=== PATIENT | male | born 1990 | race Caucasian/White ===

== ENCOUNTER 2024-08-30 22:02 | Inpatient (IN) | payer MEDICAID, SELFPAY ==
[2024-08-30 22:41] VITALS: BP 153/96; PULSE 79; RESP 16; TEMP 37.2; O2SAT 98; BMI 22.5
--- NOTE | 2024-08-31 06:31 | PC.ADMIT ---
Pt is a 34 yo male BIBA from [facility]. Pt arrived on unit at 2225 on 08/30/2024. Pt is a 12B. Pt denies medical issues. Pt denies etoh and tobacco use but reports THC use often . Utox was + for THC. Pt was sectioned by his aunts as they felt he was acting bizarrely. Mother's # is no longer in service. Pt has family hx of mental illness. Aunts of pt report that they have not seen him for over 7 years and pt randomly texted her to find out how she was, pt was made aware aunt had hip surgery. Aunt stated she was well and hoped to see him soon. Pt then showed up at his door. Pt's aunt reported that she felt the pt was on drugs as he was not talking in reality . Pt told aunt he is renting a room and his neighbor is in a motorcycle gang and out to get him . Pt reported the neighbor was taking over his body and pt is fearful that his food and water are being poisoned . Pt reports that he recently changed jobs, broke up with his girlfriend and is now renting his room alone. Pt presents as drowsy, disheveled but polite and appears linear. Pt did not complete admission process, went to bed and did not wake when name called, restly soundly. call center rn provider CAW notified of admission and orders obtained. Pt on 15 minute safety checks, feels safe on unit.
[2024-08-31 07:40] VITALS: BP 147/86; PULSE 71; RESP 16; TEMP 36.8; O2SAT 98
--- NOTE | 2024-08-31 08:38 | HO.PSYADMNOT ---
HPI Chief Complaint: Unspecified psychosis Diagnostics Vital Signs (24Hr): Vital Signs - 24 hr 08/30/24 22:41 08/31/24 07:40 Temperature 98.9 F 98.3 F Pulse Rate 79 71 Respiratory Rate 16 16 Blood Pressure 153/96 H 147/86 H Pulse Oximetry 98 98 Oxygen Delivery Method Room Air Room Air BMI result Body Mass Index 22.5 Meds/Allergies Meds Home Medications ?Medication ?Instructions ?Recorded ?Confirmed ?Type No Known Home Meds 08/31/24 08/31/24 History Allergies Allergies Allergy/AdvReac Type Severity Reaction Status Date / Time Unable to Assess Allergy Verified 08/30/24 21:36 Assessment & Plan Statement Statement: I have reviewed the history and physical and performed a pertinent examination on my patient. No changes have occurred unless specified. If the History and Physical was not performed prior to admission, the Hospitalist's service will be consulted for completing the admission physical. Time Spent With Patient Time: Total time managing care of this patient today ____ minutes.
[2024-08-31 08:43] LABS: Estimated Average Glucose 100 mg/dL; Hemoglobin A1C 126.8907 umol/L; Hemoglobin A1c % 5.1 % (<6.0); Total Hemoglobin (HGBA1C) 3918.5104 umol/L
[2024-08-31 08:52] LABS: Cholesterol 226 mg/dL (<200); HDL Cholesterol 89 mg/dL (>40); LDL Cholesterol Calculated 130 mg/dL (<100); Magnesium 2.2 mg/dL (1.6-2.6); Triglycerides 39 mg/dL (<150)
[2024-08-31 09:10] LABS: Free T4 (Free Thyroxine) 1.17 ng/dL (0.71-1.85); Thyroid Stimulating Hormone 1.44 uIU/mL (0.32-4.0)
[2024-08-31 09:19] LABS: Folate 13.7 ng/mL (> or = 4.0); Vitamin B12 363 pg/mL (200-900)
--- NOTE | 2024-08-31 10:32 | P.CONHOSP_ITS ---
History of Present Illness Data of Consult Service Date: 08/31/24 Primary Care Provider: None Physician HPI Reason for consult: Medical H&P Patient is a 34-year-old male who was brought to the [facility] ED by his family for acting bizarrely. He reports he has a remote history of childhood asthma, and his workup was benign aside from slightly elevated random glucose. Patient reports that he has a history of alcohol abuse see last drank 5 days ago. Denies any history of alcohol withdrawal or seizures. Reports that he drinks beer daily. Last drink prior to admission. Patient also reports smoking marijuana daily. He denies any past surgical history, he denies any past medical history, he has no medical complaints on exam. He appears alert in no apparent distress. Review of Systems Review of Systems: Denies any shortness of breath, chest pain, dizziness, lightheadedness, abdominal pain or discomfort, nausea vomiting or diarrhea PMFSH Social History Household Members: None Housing: Other Housing Other:: rents room Do you presently have visiting nurse or other home services: No Patient Tobacco Use Status: Refuse Tobacco use screen Currently Displaying Signs/Symptoms of Drug Intoxication Withdrawal: No Do you feel safe in your current relationship?: No Current Relationship Advance Directives: No Advance Directives Information Provided: No Do you have thoughts of harming others: None Do you have a plan to hurt others: No Plan Recently lost weight without trying: No How much weight loss: Not applicable Eating poorly because of decreased appetite: No Nutrition screen score: 0 Nutrition Risks: No Nutritional Risk Meds Allergies Allergy/AdvReac Type Severity Reaction Status Date / Time Unable to Assess Allergy Verified 08/30/24 21:36 Active Medications: Current Medications Acetaminophen (Acetaminophen 325 Mg Tablet) 650 mg PO Q6H PRN PRN Reason: Headache/Pain, Scale 1-10 Al Hydroxide/Mg Hydroxide (Magnesium Hydrox/Alum Hydrox 30 Ml Oral.Susp) 30 ml PO Q6H PRN PRN Reason: Heartburn/Nausea Hydroxyzine HCl (Hydroxyzine Hcl 25 Mg Tablet) 25 mg PO Q6H PRN PRN Reason: mild anxiety Magnesium Hydroxide (Milk Of Magnesia 30 Ml Oral.Susp) 30 ml PO DAILY PRN PRN Reason: Constipation Nicotine Polacrilex (Nicotine Polacrilex 2 Mg Gum) 4 mg BUCCAL Q2H PRN PRN Reason: Nicotine Cravings Trazodone HCl (Trazodone Hcl 50 Mg Tablet) 50 mg PO BEDTIME MRX1 PRN PRN Reason: Insomnia Home Medications ?Medication ?Instructions ?Recorded ?Confirmed ?Last Taken ?Type No Known Home Meds 08/31/24 08/31/24 Unknown History Physical Exam Vital Signs and Narrative: Vital Signs: Last Vital Signs Temp 98.3 F 08/31/24 07:40 Pulse 71 08/31/24 07:40 Resp 16 08/31/24 07:40 BP 147/86 H 08/31/24 07:40 Pulse Ox 98 08/31/24 07:40 O2 Del Method Room Air 08/31/24 07:40 BMI result Body Mass Index 22.5 Alert and oriented X3, able to give good history. Neuro: CN II-X11 intact, no deficits, visual acuity intact EYES: PERRLA, EOM intact ENT: hearing intact, uvula midline, lips moist Cardiac: S1 S2 RRR, no edema in Lower ext, no calf tenderness Pulmonary: lungs clear to auscultation, No increased WOB. Abdominal: BS active in all 4 quadrants, no guarding or tenderness MSK: Strength 5/5 upper and lower extremities, ambulates with a steady gait : Deferred Extremities: no edema in lower extremities Psych: mood stable, speech rapid. Skin: Warm and dry, Intact Results Labs Labs: Laboratory Results - last 24 hr 08/31/24 07:58 Estimat Average Glucose 100 Hemoglobin A1c % 5.1 Magnesium 2.2 Triglycerides 39 Cholesterol 226 H LDL Cholesterol, Calc 130 H HDL Cholesterol 89 Vitamin B12 363 Folate 13.7 TSH 1.44 Free T4 1.17 Assessment and Plan (1) Bizarre behavior: Status: Acute Plan 34-year-old healthy male brought to the ED by his family for acting bizarrely, his medical workup was relatively benign. He received olanzapine in the emergency department at outside hospital. He is admitted here for further psychiatric care. Plan per psychiatric team. Reviewed a.m. labs, despite elevated random glucose on admit his A1c is 5.1. Cholesterol slightly elevated. We will need to follow up with his primary care upon discharge. Encouraged diet modification and exercise Thank you for allowing me to participate in the care of this patient. Signing off at this time. Please reconsult of any acute complaints or issues arise
--- NOTE | 2024-08-31 13:48 | P.HPPS_ITS ---
HPI Date of Service: 08/31/24 Chief Complaint: Unspecified psychosis Sources of Information: patient interviewed, chart reviewed and crisis/core team assessment reviewed HPI Subjective Notes: Stock Warning and Section 12B Narrative: Patient is a 34-year-old male with history of bipolar disorder who was brought in to ER by family due to concerns of bizarre behavior . Per crisis report, patient reports that he has not slept in several days. He reports recent stressors have been breaking up with his girlfriend, which required him to move out of the apartment and find a room to rent, and changing jobs . Per family, they were concerned the patient was on something and reporting that patient was acting bizarre . Patient told his aunt that he was fearful that his food and water being poisoned and that his neighbor was taking over his body . Patient family reports they have not seen or heard from him in multiple years d/t pt's mother keeping him away from them. History of 1 prior inpatient psychiatric hospitalization (2007). History of being prescribed psychiatric medications however is not currently prescribed any medications. He does not have outpatient psychiatric providers. Patient stated he does not trust doctors and does not want to get drugs pumped into his body . Patient reports he was previously prescribed Seroquel and lorazepam. During admission assessment, patient presents alert and oriented x3. Calm and cooperative. Patient reports feeling tired due to not sleeping for few days. Patient reports being diagnosed with bipolar disorder and previously being prescribed Seroquel, Abilify and lorazepam. Patient stated, I hated it. I was drugged out . Patient reports he is currently not interested in taking psychiatric medications. Patient stated, I do not want medications and [employer]. I think the marijuana I was smoking made me worse and made me panic. I'm going to lay off of that . 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 Patient reports he is agreeable to take medication for sleep; risks/benefits reviewed. Past Psychiatric History: hx of one prior inpatient psychiatric hospitalization does not have outpatient psychiatric providers denies hx of SA/SIB. medication hx of Seroquel and Ativan. Medical Evaluation Reviewed: Yes PMFSH Family History: unknown Social History: rents a room. single. no kids. employed waste disposal plant operator. some college Substance History: smoke marijuana daily. denies any other substance use. Trauma History: denies Diagnostics Vital Signs (24Hr): Vital Signs - 24 hr 08/30/24 22:41 08/31/24 07:40 Temperature 98.9 F 98.3 F Pulse Rate 79 71 Respiratory Rate 16 16 Blood Pressure 153/96 H 147/86 H Pulse Oximetry 98 98 Oxygen Delivery Method Room Air Room Air BMI result Body Mass Index 22.5 Labs Labs: Laboratory Results - last 48 hr 08/31/24 07:58 Estimat Average Glucose 100 Hemoglobin A1c % 5.1 Magnesium 2.2 Triglycerides 39 Cholesterol 226 H LDL Cholesterol, Calc 130 H HDL Cholesterol 89 Vitamin B12 363 Folate 13.7 TSH 1.44 Free T4 1.17 Meds/Allergies Meds Home Medications ?Medication ?Instructions ?Recorded ?Confirmed ?Type No Known Home Meds 08/31/24 08/31/24 History Allergies Allergies Allergy/AdvReac Type Severity Reaction Status Date / Time Unable to Assess Allergy Verified 08/30/24 21:36 Mental Status Exam Mental Status Exam Patient Appearance: Appropriate Patient Orientation: Person, Place, Time and Situation Level of Consciousness: Awake and Alert Patient Behavior: Appropriate, Cooperative and Good Eye Contact Mood Description: Calm Affect Description: Calm Ability to Follow Directions: Good Speech Pattern: Clear and Appropriate Memory Description: Intact Hallucinations: None Delusions: Not Present Thought Process: Intact Thought Content: positive for Intact Assessment & Plan Assessment & Plan (1) Bipolar 1 disorder: Status: Acute Code(s): F31.9 - Bipolar disorder, unspecified Plan Patient is a 34-year-old male with history of bipolar disorder who was brought in to ER by family due to concerns of bizarre behavior . Plan: 12B 15 minute safety checks obtain collateral Start: Melatonin 6mg PO bedtime Zyprexa 5mg PO bedtime encourage groups referral to outpatient psychiatric providers discharge planning Patient educated on: diagnosis and medication risk/benefits Reason for continued inpatient stay Substantial Risk for: med/psych decompensation Statement Statement: I have reviewed the history and physical and performed a pertinent examination on my patient. No changes have occurred unless specified. If the History and Physical was not performed prior to admission, the Hospitalist's service will be consulted for completing the admission physical. Time Spent With Patient Time: Total time managing care of this patient today _60___ minutes.
[2024-08-31 20:00] VITALS: BP 150/96; PULSE 72; RESP 16; TEMP 37.4; O2SAT 99
[2024-08-31] MEDS: Melatonin 3 MG TABLET 6 MG PO (23:05)
--- NOTE | 2024-09-01 07:25 | HO.PSYCHPN ---
Subjective Subjective Date of Service: 09/01/24 Reason For Visit: Unspecified psychosis Subjective Notes: Section 12B Interim History: patient interviewed. Discussed with staff. Chart reviewed. Is flat. Denies having any mental health issues and refusing medications. Eating and drinking okay. Slept 5 hours. In the milieu watching golf. 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 Reports he has been working 3 jobs and can not catch a break. Very eager for discharge. Feels that food and such things in the hospital may be poisoned and he has been feeling drowsy at times. Does make statements that may or may not be true such as knowing the Yonny brothers who are professional golfers, and playing in the current [employer]. Reports knowing them because his aunt went to school with their mom -of note The Yonny family are based in the . Medication Compliance: No Side effects from medications: No Attending Groups: No Review of Systems Acute medical concerns: No Review of Systems Review of Systems unremarkable Mental Status Exam Mental Status Exam Patient Appearance: Appropriate Patient Orientation: Person, Place, Time and Situation Level of Consciousness: Awake and Alert Patient Behavior: Appropriate, Cooperative and Good Eye Contact Mood Description: Calm Affect Description: Calm Ability to Follow Directions: Good Speech Pattern: Clear and Appropriate Memory Description: Intact Hallucinations: None Delusions: Not Present (Does make statements that may or may not be true such as knowing the Yonny brothers who are professional golfers, and playing in the current [employer]. Reports knowing them because his aunt went to school with their mom -of note The Yonny family are based in the .) Thought Process: Intact Thought Content: positive for Intact Diagnostics Vital Signs (24Hr): Vital Signs - 24 hr 08/31/24 07:40 08/31/24 20:00 Temperature 98.3 F 99.3 F Pulse Rate 71 72 Respiratory Rate 16 16 Blood Pressure 147/86 H 150/96 H Pulse Oximetry 98 99 Oxygen Delivery Method Room Air Room Air BMI result Body Mass Index 22.5 Labs Labs: Laboratory Results - last 48 hr 08/31/24 07:58 Estimat Average Glucose 100 Hemoglobin A1c % 5.1 Magnesium 2.2 Triglycerides 39 Cholesterol 226 H LDL Cholesterol, Calc 130 H HDL Cholesterol 89 Vitamin B12 363 Folate 13.7 TSH 1.44 Free T4 1.17 Medications Medications Current Medications Acetaminophen (Acetaminophen 325 Mg Tablet) 650 mg PO Q6H PRN PRN Reason: Headache/Pain, Scale 1-10 Al Hydroxide/Mg Hydroxide (Magnesium Hydrox/Alum Hydrox 30 Ml Oral.Susp) 30 ml PO Q6H PRN PRN Reason: Heartburn/Nausea Hydroxyzine HCl (Hydroxyzine Hcl 25 Mg Tablet) 25 mg PO Q6H PRN PRN Reason: mild anxiety Lorazepam (Lorazepam 0.5 Mg Tablet) 0.5 mg PO BID PRN PRN Reason: severe anxiety Magnesium Hydroxide (Milk Of Magnesia 30 Ml Oral.Susp) 30 ml PO DAILY PRN PRN Reason: Constipation Melatonin (Melatonin 3 Mg Tablet) 6 mg PO BEDTIME [facility] Last Admin: 08/31/24 23:05 Dose: 6 mg Nicotine Polacrilex (Nicotine Polacrilex 2 Mg Gum) 4 mg BUCCAL Q2H PRN PRN Reason: Nicotine Cravings Olanzapine (Olanzapine 5 Mg Tablet) 5 mg PO Q4H PRN PRN Reason: agitation Olanzapine (Olanzapine 5 Mg Tablet) 5 mg PO BEDTIME [facility] Last Admin: 08/31/24 21:36 Dose: Not Given Trazodone HCl (Trazodone Hcl 50 Mg Tablet) 50 mg PO BEDTIME MRX1 PRN PRN Reason: Insomnia Allergies Allergies Allergy/AdvReac Type Severity Reaction Status Date / Time Unable to Assess Allergy Verified 08/30/24 21:36 Assessment & Plan Assessment & Plan (1) Bipolar 1 disorder: Status: Acute Code(s): F31.9 - Bipolar disorder, unspecified Plan Patient is a 34-year-old male with history of bipolar disorder who was brought in to ER by family due to concerns of bizarre behavior . Plan: 12B 15 minute safety checks obtain collateral Start: Melatonin 6mg PO bedtime Zyprexa 5mg PO bedtime encourage groups referral to outpatient psychiatric providers discharge planning 09/01/2024: No changes to current treatment plan. Declining medications. Section 12 B observation. Section 12 on 09/04/2024 Reason for continued inpatient stay Substantial Risk for: rapid decompensation Time Spent With Patient Time: Total time managing care of this patient today ____ minutes.
[2024-09-01 08:00] VITALS: BP 159/97; PULSE 91; TEMP 37.1; O2SAT 99
[2024-09-01] MEDS: LORazepam 0.5 MG TABLET PO (10:39)
[2024-09-01] MEDS: OLANZapine 5 MG TABLET PO ×2 (10:39→21:19)
[2024-09-01 20:00] VITALS: BP 120/75; PULSE 73; RESP 14; TEMP 36.8; O2SAT 99
[2024-09-02 07:10] VITALS: BP 145/97; PULSE 67; RESP 16; TEMP 36.8; O2SAT 99
--- NOTE | 2024-09-02 13:29 | HO.PSYCHPN ---
Subjective Subjective Date of Service: 09/02/24 Reason For Visit: Unspecified psychosis Subjective Notes: Section 12B (exp 09/04) Interim History: Eating and sleeping OK. Remains paranoid. Some lability and irritability but no agitated behaviors. Out in the dining room at times but not social. Medication Compliance: No Side effects from medications: No Attending Groups: No Review of Systems Acute medical concerns: No Medical Review of Systems: unchanged Mental Status Exam Mental Status Exam Patient Appearance: Well Grooomed Level of Consciousness: Alert Patient Behavior: Appropriate Mood Description: Calm Affect Description: Suspicious Patient Cognition Impaired: No Ability to Follow Directions: Good Speech Pattern: Clear Memory Description: Intact Hallucinations: None Delusions: Paranoid Ideation Thought Process: Linear Thought Content: positive for Evasive Judgement: Fair Diagnostics Vital Signs (24Hr): Vital Signs - 24 hr 09/01/24 20:00 09/02/24 07:10 Temperature 98.3 F 98.3 F Pulse Rate 73 67 Respiratory Rate 14 16 Blood Pressure 120/75 145/97 H Pulse Oximetry 99 99 Oxygen Delivery Method Room Air Room Air BMI result Body Mass Index 22.5 Medications Medications Current Medications Acetaminophen (Acetaminophen 325 Mg Tablet) 650 mg PO Q6H PRN PRN Reason: Headache/Pain, Scale 1-10 Al Hydroxide/Mg Hydroxide (Magnesium Hydrox/Alum Hydrox 30 Ml Oral.Susp) 30 ml PO Q6H PRN PRN Reason: Heartburn/Nausea Hydroxyzine HCl (Hydroxyzine Hcl 25 Mg Tablet) 25 mg PO Q6H PRN PRN Reason: mild anxiety Lorazepam (Lorazepam 0.5 Mg Tablet) 0.5 mg PO BID PRN PRN Reason: severe anxiety Last Admin: 09/01/24 10:39 Dose: 0.5 mg Magnesium Hydroxide (Milk Of Magnesia 30 Ml Oral.Susp) 30 ml PO DAILY PRN PRN Reason: Constipation Melatonin (Melatonin 3 Mg Tablet) 6 mg PO BEDTIME [facility] Last Admin: 09/01/24 21:20 Dose: Not Given Nicotine Polacrilex (Nicotine Polacrilex 2 Mg Gum) 4 mg BUCCAL Q2H PRN PRN Reason: Nicotine Cravings Olanzapine (Olanzapine 5 Mg Tablet) 5 mg PO Q4H PRN PRN Reason: agitation Last Admin: 09/01/24 10:39 Dose: 5 mg Olanzapine (Olanzapine 5 Mg Tablet) 5 mg PO BEDTIME [facility] Last Admin: 09/01/24 21:19 Dose: 5 mg Trazodone HCl (Trazodone Hcl 50 Mg Tablet) 50 mg PO BEDTIME MRX1 PRN PRN Reason: Insomnia Allergies Allergies Allergy/AdvReac Type Severity Reaction Status Date / Time Unable to Assess Allergy Verified 08/30/24 21:36 Assessment & Plan Assessment & Plan (1) Bipolar 1 disorder: Status: Acute Code(s): F31.9 - Bipolar disorder, unspecified Plan Patient is a 34-year-old male with history of bipolar disorder who was brought in to ER by family due to concerns of bizarre behavior . Plan: 12B 15 minute safety checks obtain collateral Start: Melatonin 6mg PO bedtime Zyprexa 5mg PO bedtime encourage groups referral to outpatient psychiatric providers discharge planning 09/01/2024: No changes to current treatment plan. Declining medications. Section 12 B observation. Section 12 on 09/04/2024 09/02/24: Did take meds yesterday, encourage continued adherence Reason for continued inpatient stay Substantial Risk for: rapid decompensation Time Spent With Patient Time: Total time managing care of this patient today ____ minutes.
[2024-09-02 20:45] VITALS: BP 119/63; PULSE 77; RESP 18; TEMP 36.5; O2SAT 98
[2024-09-02] MEDS: OLANZapine 5 MG TABLET PO (21:59)
[2024-09-02] MEDS: Melatonin 3 MG TABLET 6 MG PO (21:59)
[2024-09-03 07:30] VITALS: BP 153/85; PULSE 61; RESP 14; TEMP 36.9; O2SAT 99
[2024-09-03] MEDS: Acetaminophen 325 MG TABLET 650 MG PO (13:05)
--- NOTE | 2024-09-03 14:15 | P.DS_ITS ---
DS: Providers Provider Date of Service: 09/03/24 Date of admission: 08/30/24 22:02 Date of discharge: 09/04/24 Primary care physician: None Physician Consults: 08/31/24 05:15 Consult to Hospitalist Routine Comment: Consulting Provider: [facility] [place] Hospitalists Reason For Exam: transfer pt DS: Diagnosis Discharge Diagnosis (1) Bipolar 1 disorder: Status: Acute DS: Medications Discharge Medications Home Medications: Previous Rx's ?Medication ?Instructions ?Recorded melatonin 3 mg tablet 6 mg (2 x 3 mg) PO BEDTIME 30 days 09/03/24 #60 tabs olanzapine 5 mg tablet 5 mg PO BEDTIME 30 days #30 tabs 09/03/24 Mental Status Exam Mental Status Exam Narrative: adequately dressed and groomed. slight PMA of frequent, jerky movements. cooperative. speech incr rate and amount, decr latency. thoughts digressive, tangential, paranoid delusions. affect constricted, hyper-intense, mod-labile. mood kind of pissed off. +SI/SIBI/HI/AVH. Data Data Completed and Pending Completed studies during hospitalization [Text1]: 08/31/24 07:58 Estimat Average Glucose 100 Hemoglobin A1c % 5.1 Magnesium 2.2 Triglycerides 39 Cholesterol 226 H LDL Cholesterol, Calc 130 H HDL Cholesterol 89 Vitamin B12 363 Folate 13.7 TSH 1.44 Free T4 1.17 DS: Summary Hospital Course Hospital Course: per 08/31 admission note: HPI Subjective Notes: Stock Warning and Section 12B Narrative: Patient is a 34-year-old male with history of bipolar disorder who was brought in to ER by family due to concerns of bizarre behavior . Per crisis report, patient reports that he has not slept in several days. He reports recent stressors have been breaking up with his girlfriend, which required him to move out of the apartment and find a room to rent, and changing jobs . Per family, they were concerned the patient was on something and reporting that patient was acting bizarre . Patient told his aunt that he was fearful that his food and water being poisoned and that his neighbor was taking over his body . Patient family reports they have not seen or heard from him in multiple years d/t pt's mother keeping him away from them. History of 1 prior inpatient psychiatric hospitalization (2007). History of being prescribed psychiatric medications however is not currently prescribed any medications. He does not have outpatient psychiatric providers. Patient stated he does not trust doctors and does not want to get drugs pumped into his body . Patient reports he was previously prescribed Seroquel and lorazepam. During admission assessment, patient presents alert and oriented x3. Calm and cooperative. Patient reports feeling tired due to not sleeping for few days. Patient reports being diagnosed with bipolar disorder and previously being prescribed Seroquel, Abilify and lorazepam. Patient stated, I hated it. I was drugged out . Patient reports he is currently not interested in taking psychiatric medications. Patient stated, I do not want medications and [employer]. I think the marijuana I was smoking made me worse and made me panic. I'm going to lay off of that . 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 Patient reports he is agreeable to take medication for sleep; risks/benefits reviewed. Past Psychiatric History: hx of one prior inpatient psychiatric hospitalization does not have outpatient psychiatric providers denies hx of SA/SIB. medication hx of Seroquel and Ativan. Medical Evaluation Reviewed: Yes PMFSH Family History: unknown Social History: rents a room. single. no kids. employed public information relations manager. some college Substance History: smoke marijuana daily. denies any other substance use. Trauma History: denies Precis: Patient is a 34-year-old male with history of bipolar disorder who was brought in to ER by family due to concerns of bizarre behavior . 08/31: Start: Melatonin 6mg PO bedtime. Zyprexa 5mg PO bedtime. encourage groups. referral to outpatient psychiatric providers. discharge planning 09/01: No changes to current treatment plan. Declining medications. Section 12 B observation. Section 12 expires on 09/04/202409/02: Did take meds yesterday, encourage continued adherence. 09/03: seems to be taking zyprexa at HS and melatonin. feels helped to sleep by meds. meds reviewed, reconciled, prescribed. pt discharging tomorrow on 12 as he does not appear dangerous. 09/04: stable over night. inadequate basis for filing for commitment. discharged as planned. Time Spent with Patient Time attestation: Total time managing care of this patient today __35__ minutes. Discharge Plan Discharge Anticipated Discharge Date/Time: 09/04/24 11:00 Patient Disposition: Home, Self-Care Discharge Diagnosis: Bipolar I Disorder, MRE Manic Referrals: [facility] [Other] - 1 Week (If you need help finding a PCP, please call the number above. ) Discharge Medications: New olanzapine 5 mg Tablet 5 mg PO BEDTIME 30 Days Qty: 30 0RF melatonin 3 mg Tablet 6 mg PO BEDTIME 30 Days Qty: 60 0RF Discharge Orders: Discharge Order (Routine); Ordered 09/04/24 Ordered By: Kiet Nelson Diet: Advance to usual diet Activity on Discharge: As tolerated Stand Alone Forms: Patient Portal Discharge page, Community Support Print Language: Kinyarwanda Care Plan Goals: seek out mental health services in your area Health Concerns: none Plan of Treatment: take medications as prescribed, attend appointments as scheduled Assessment: not at imminent risk of harm to self or others Discharge Date/Time: 09/04/24 12:21
[2024-09-03 20:00] VITALS: BP 151/93; PULSE 84; RESP 18; TEMP 36.7; O2SAT 98
[2024-09-03] MEDS: OLANZapine 5 MG TABLET PO (20:20)
[2024-09-03] MEDS: Melatonin 3 MG TABLET 6 MG PO (22:11)
[2024-09-04 07:55] VITALS: BP 120/72; PULSE 87; RESP 16; TEMP 37.1; O2SAT 99
[2024-09-04] MEDS: OLANZapine 5 MG TABLET PO (12:15)
== END 2024-09-04 12:21 | disposition home or self-care (01) | DRG 753 ==
PROVIDERS: Clinical Nurse Specialist Psychiatric/Mental Health, Adult; Admitting Provider Psychiatry & Neurology Psychiatry; Responsible Provider Registered Nurse; Visit Provider Psychiatry & Neurology Psychiatry
DX: F31.9 Bipolar disorder, unspecified (principal); Z79.899 Other long term (current) drug therapy
CPT/HCPCS: 36415; 80061; 82607; 82746; 83036; 83735; 84439; 84443

== ENCOUNTER → 2024-08-30 22:02 | Outpatient (BNV) | payer OTHER, SELFPAY | PROVIDERS: Admitting Provider Psychiatry & Neurology Psychiatry; Responsible Provider Registered Nurse; Visit Provider Psychiatry & Neurology Psychiatry | DX: F31.9 Bipolar disorder, unspecified (principal) | CPT/HCPCS: 99231; 99232; 99233 ==

== ENCOUNTER → 2024-08-30 22:02 | Outpatient (BNV) | payer MEDICAID, SELFPAY | PROVIDERS: Admitting Provider Psychiatry & Neurology Psychiatry; Visit Provider Nurse Practitioner Family | DX: Z00.8 Encounter for other general examination (principal) | CPT/HCPCS: 99429 ==